=== PATIENT | female | born 2000 | race Caucasian/White ===

== ENCOUNTER 2020-07-03 15:26 | Emergency (ER) | payer OTHER, SELFPAY ==
--- NOTE | 2020-07-03 15:37 | ED.GENADULT ---
HPI - General Adult General Chief complaint: Skin/Abscess/Foreign Body Stated complaint: sore on private area Time Seen by Provider: 07/03/20 15:37 Source: patient Mode of arrival: ambulatory Limitations: no limitations History of Present Illness HPI narrative: 19-year-old female patient presents to the the medical center with complaints of blisters to the vaginal and anal area that she is noticed for the past 3 days. Patient states they are painful. Patient denies any discharge. Patient denies any fevers, abdominal pain, nausea, vomiting or diarrhea. Patient denies any vaginal discharge. Patient denies any pain with urination. Denies any pain with intercourse. Patient denies at this time. Patient states that she is sexually active but states that she does use condoms and is only with one person. Patient denies ever having an STD before in the past. Related Data Allergies Allergy/AdvReac Type Severity Reaction Status Date / Time No Known Allergies Allergy Verified 10/20/19 09:52 Review of Systems Review of Systems: Narrative: CONSTITUTIONAL: Denies fever, chills, or sweats. EYES: Denies visual changes, redness, or discharge. ENT: Denies rhinorrhea, congestion, sore throat, or otalgia. CARDIOVASCULAR: Denies chest pain, palpitations, or edema. RESPIRATORY: Denies cough or dyspnea. GASTROINTESTINAL: Denies abdominal pain, nausea, vomiting, or diarrhea. GENITOURINARY: Denies dysuria or hematuria. Positive painful blisters to vaginal buttocks area x3 days SKIN: Denies rash or itching. MUSCULOSKELETAL: Denies back pain, joint pain, or myalgia. NEUROLOGIC: Denies headache, numbness, or weakness. PSYCHIATRIC: Denies anxiety or depression. [facility] Surgical History Surgical History Hx of tympanostomy tubes Social History Social History Smoking status: Never smoker Alcohol intake: never Substance use: never Gender identity (if verbalized by the patient): Female Comments At the time of my signature I agree with nursing past medical history, surgical, social, and family history. There is no relevant family history pertinent to the presenting complaint. Exam Narrative: Exam Narrative: GENERAL: Well-appearing, well-nourished, and in no acute distress. HEAD: Normocephalic, atraumatic. EYES: PERRLA and EOMI. ENT: Nares clear, no rhinorrhea or epistaxis. Mucous membranes moist. NECK: Supple. No lymphadenopathy CHEST: Clear to auscultation. No respiratory distress. HEART: Regular rate and rhythm. No murmur heard. Normal peripheral pulses. ABDOMEN: Soft, nontender, nondistended, normal active bowel sounds. EXTREMITIES: Normal range of motion. No edema. SKIN: Warm, dry, no rash. Patient has blisters noted to vaginal area that are flat. To be and are starting to dry. The area does extend down to the left groin and the buttock area. There is no active discharge noted at this time. There is some surrounding erythema to the areas. NEURO: No focal deficits. Alert and oriented x3. Course Vital Signs Vital signs: Vital Signs Temperature 37.2 C 07/03/20 15:41 Pulse Rate 94 07/03/20 15:41 Respiratory Rate 16 07/03/20 15:41 Blood Pressure 143/86 H 07/03/20 15:41 Pulse Oximetry 99 07/03/20 15:41 Temperature 37.2 C 07/03/20 15:41 Pulse Rate 94 07/03/20 15:41 Respiratory Rate 16 07/03/20 15:41 Blood Pressure 143/86 H 07/03/20 15:41 Pulse Oximetry 99 07/03/20 15:41 Vital signs reviewed. The patient has been informed that they may have pre-hypertension or Hypertension based on a BP reading in the department. I recommend that the patient call the primary care provider listed on their discharge instructions or a physician of their choice this week to arrange follow up for further evaluation of possible pre-hypertension or Hypertension Medical Decision Making Differential Diagnosis Di
[2020-07-03 15:41] VITALS: BP 143/86; PULSE 94; RESP 16; TEMP 37.2; O2SAT 99
--- NOTE | 2020-07-03 15:48 | PC.NURSE ---
in br to obtain ua spec.
== END 2020-07-03 16:15 | disposition home or self-care (01) ==
PROVIDERS: Emergency Provider Nurse Practitioner Family; PCP Nurse Practitioner Psychiatric/Mental Health
DX: A60.1 Herpesviral infection of perianal skin and rectum (principal)
CPT/HCPCS: 81025; 99213; G0463

== ENCOUNTER 2020-07-15 08:03 | Emergency (ER) | payer OTHER, SELFPAY ==
[2020-07-15 08:17] VITALS: BP 138/71; PULSE 89; RESP 16; TEMP 36.9; O2SAT 100
--- NOTE | 2020-07-15 08:17 | ED.GENADULT ---
HPI - General Adult General Chief complaint: Upper Respiratory Infection Stated complaint: sore throat Time Seen by Provider: 07/15/20 08:23 Source: patient and RN notes reviewed Mode of arrival: ambulatory Limitations: no limitations History of Present Illness HPI narrative: This is a 19 years old female presents to the office for an evaluation of sore throat for two days. Associated with cough. No RX prior to arrival. 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 Denies COVID contact. Related Data Home Medications Medication Instructions Recorded Confirmed No Home Medications 07/15/20 07/15/20 Allergies Allergy/AdvReac Type Severity Reaction Status Date / Time No Known Allergies Allergy Verified 07/15/20 08:28 Review of Systems Review of Systems: Narrative: CONSTITUTIONAL: Denies fever, chills, sweats. ENT: Denies rhinorrhea, congestion, otalgia. Reports sore throat CARDIOVASCULAR: Denies chest pain, palpitation RESPIRATORY: Denies dyspnea, wheezing. Reports cough GASTROINTESTINAL: Denies abdominal pain, nausea, vomiting, diarrhea. GENITOURINARY: Denies urinary symptoms or discharge SKIN: Denies rash MUSCULOSKELETAL: Denies acute back pain NEUROLOGIC: Denies lightheaded All other systems reviewed are negative, except as documented in HPI. [facility] Surgical History Surgical History Hx of tympanostomy tubes Social History Social History Smoking status: Never smoker Alcohol intake: never Substance use: never Gender identity (if verbalized by the patient): Female Comments At time of signature, I agree with nursing past medical, surgical, social and family history. There is no relevant family history pertinent to the presenting complaint. Exam Narrative: Exam Narrative: GENERAL: This is a well-nourished, well-developed patient, in no apparent distress. EYES: Sclera clear/white. Vision is grossly intact. EARS: External ears normal, auditory canals clear and without drainage, TMs normal without perforation. Hearing grossly intact. NOSE: External nose normal with no obvious nasal discharge, nares without redness, no rhinorrhea. THROAT: Mucous membranes moist, posterior pharynx erythema with edematous. NECK: Neck supple, non-tender without lymphadenopathy, masses or thyromegaly. CARDIOVASCULAR: Regular rate and rhythm without murmurs, gallops, or rubs. RESPIRATORY: Clear to auscultation. Breath sounds equal bilaterally. No wheezes, rales, or rhonchi. GASTROINTESTINAL: Abdomen soft, non-tender, nondistended. Bowel sounds are active. No hepato-splenomegaly, or palpable masses. No guarding. SKIN: warm, intact with no suspicious lesions or rash, good texture and turgor. NEURO: awake, alert, and oriented to person, place and time. There were no obvious focal neurologic abnormalities. Steady gait Ángel Coma Scale Eye Opening: Spontaneous 4 [place] Coma Scale Motor: Obeys Commands 6 [place] Coma Scale Verbal: Oriented 5 Medical Decision Making MDM Narrative Medical decision making narrative: Discharge instructions reviewed with patient, as well as provided in writing per nursing staff. The instructions also include specific and strict return/GO TO THE ER as well as f/u information. All questions have been answered, and the patient deny any further questions with discharge and discharge plan. Differential Diagnosis Differential Diagnosis: Allergic Rhinitis, Upper respiratory cough syndrome, Pharyngitis, Sinusitis, Bronchitis, otitis media, viral URI, Asthma/reactive airway disease, COVID Medical Records Medical records reviewed: Yes I reviewed the patient's medical records. Medical records narrative: 07/03/2020 Lab Data Lab results reviewed: Yes I reviewed the patient's lab results. Critical Care Time Critical Care Time Critical Care Time: No Dischar
== END 2020-07-15 08:36 | disposition home or self-care (01) ==
PROVIDERS: Emergency Provider Nurse Practitioner; PCP Nurse Practitioner Psychiatric/Mental Health
DX: J02.9 Acute pharyngitis, unspecified (principal); K76.0 Fatty (change of) liver, not elsewhere classified
CPT/HCPCS: 87081; 87147; 87880; 99213; G0463

== ENCOUNTER 2021-10-18 17:52 | Emergency (ER) | payer OTHER, SELFPAY ==
--- NOTE | 2021-10-18 18:01 | ED.URI ---
HPI - URI/Sore Throat General Chief Complaint: Upper Respiratory Infection Stated Complaint: Sore throat Time Seen by Provider: 10/18/21 18:01 Source: patient, RN notes reviewed and old records reviewed Mode of arrival: ambulatory Limitations: no limitations History of Present Illness HPI Narrative: 20-year-old female presents to the [facility] with complaints of a sore throat, headache, body aches and generalized not feeling well. Denies having fevers. No abdominal pain or chest pain. Denies cough. Denies any significant medical or surgical history MD elicited complaint: sore throat Related Data Allergies Allergy/AdvReac Type Severity Reaction Status Date / Time No Known Allergies Allergy Verified 07/15/20 08:28 Review of Systems Review of Systems: All systems reviewed & are unremarkable except as noted in HPI and below Constitutional: Constitutional: Reports no additional constitutional complaints, Denies chills and Denies fever(s) Eyes: Eyes: Reports no additional eye complaints ENT: Reports as per HPI, Denies nasal congestion and Reports sore throat Cardiovascular: Cardiovascular: Reports no additional cardiovascular complaints and Denies chest pain Respiratory: Respiratory: Reports no additional respiratory complaints, Denies cough and Denies dyspnea Gastrointestinal: Gastrointestinal: Reports no additional gastrointestinal complaints, Denies abdominal pain, Denies nausea and Denies vomiting Musculoskeletal: Musculoskeletal: Reports as per HPI and Reports myalgias Integumentary/Breasts: Skin/Breast: Reports system reviewed and no additional complaints, except as docu Neurologic: Reports as per HPI and Reports headache(s) Psychiatric: Psychiatric: Reports no additional psychiatric complaints Allergic/Immunologic: Allergic/Immunologic: Reports no additional allergic/immunologic complaints PENDING SALE TO [facility] Past Medical History Medical History (Updated 10/18/21 @ 19:49 by Ashley Valerio) Patient denies medical problems Surgical History Surgical History (Updated 10/18/21 @ 19:49 by Ashley Valerio) Hx of tympanostomy tubes Social History Social History Smoking status: Never smoker Alcohol intake: never Substance use: never Gender identity (if verbalized by the patient): Female Comments At the time of my signature, I reviewed and agree with the nursing past medical, surgical, social, and family history. There is no relevant family history pertinent to the patient complaint. Exam Const: General: healthy appearing, no acute distress and alert Nutritional Appearance: well nourished and obese Orientation/consciousness: patient oriented x3 Limitations: no limitations HENMT: Head: normal to inspection Ears: external ears normal, TM's normal bilaterally and EAC's normal Eyes: Conjunctivae: conjunctivae normal Pupils: Equal, round and reactive pupils present Neck: Neck: normal visual inspection, no lymphadenopathy and no meningeal signs Chest: Chest palpation & inspection: normal inspection of the chest Resp: Effort & Inspection: normal respiratory effort and no use of accessory muscles Auscultation: clear to auscultation bilaterally, no crackles, no rales, no rhonchi and no wheezes Cardio: Rate: regular rate Rhythm: regular rhythm GI: GI Palp: Yes Soft to palpation and No Tenderness to palpation present (GI) : General: Yes no CVA tenderness Back/Spine/Pelvis: Back: no CVA tenderness Skin: General skin exam: normal color Rashes: no rashes Wounds: no wounds Neuro: General: patient oriented x3, moves all extremities, no meningeal signs and no focal motor deficits Speech: normal speech Gait exam (Neuro): Normal gait present Extrem: General: normal to inspection Psych: Appearance: grossly normal and well kempt Mental Status: mental status grossly normal Affect: normal affect Attitude: cooperative Thought content: Yes Normal thought cont
[2021-10-18 18:05] VITALS: BP 139/78; PULSE 118; RESP 20; TEMP 39.2; O2SAT 98
--- NOTE | 2021-10-18 18:22 | PC.NURSE ---
PCR thang collected, too late to call sherly will call in AM.
[2021-10-18 18:31] VITALS: TEMP 39.2
[2021-10-18] MEDS: ACETAMINOPHEN 500 MG TABLET 1000 MG PO (18:31)
[2021-10-18 18:48] LABS: SARS-CoV-2 RNA PCR Positive
== END 2021-10-18 18:59 | disposition home or self-care (01) ==
PROVIDERS: Emergency Provider Nurse Practitioner; PCP Registered Nurse
DX: U07.1 COVID-19 (principal); K76.0 Fatty (change of) liver, not elsewhere classified
CPT/HCPCS: 87081; 87147; 87804; 87880; 99213; A9270; C9803; G0463; U0003; U0005

== ENCOUNTER 2023-11-18 11:41 | Outpatient (CLI) | payer OTHER, SELFPAY ==
--- NOTE | ~2023-11-18 | XR_ITS ---
EXAMINATION: XR hysterosalpingogram DATE: 11/18/2023 12:32 INDICATION: Female infertility TECHNIQUE: Multiple fluoroscopic images were obtained during contrast infusion into the endometrial c anal of the uterus by the primary physician. Fluoroscopy exposure time was 0.4 minutes. A total of 5 fluoroscopic images were recorded. Total DAP was 4.641 Gycm^2 FINDINGS: The uterine cavity demonstrates normal morphology. The fallopian tubes are normal in caliber and pat ent bilaterally. There is normal spillage of contrast into the peritoneum on both sides. IMPRESSION: 1. Normal hysterosalpingogram. Reviewed, dictated and finalized at location A. LOPMENT EDITOR
--- NOTE | 2023-11-18 12:52 | W.PM.PROC2 ---
Procedure Note - Detailed Date of Procedure 11/18/23 Pre-op Diagnosis Female infertility Post-op Diagnosis Same Procedure Performed Hysterosalpingogram Surgeon Herrera Rose MD Anesthesia None Indications Infertility Findings Patent fallopian tubes bilaterally, normal appearing uterine cavity Description of Procedure R/b/a of procedure was discussed and consent was signed. The patient was placed on the fluoroscopy table and a speculum was placed in the vagina. The cervix was cleansed with betadine solution. The HSG catheter was inserted through the cervix and the balloon was inflated with 3cc of water. Under fluoroscopic guidance, contrast was injected slowly with bilateral spillage seen on fluoro. Total fluoro time 1 min. The balloon was deflated and the catheter was removed. The speculum was then removed. The patient tolerated the procedure well. Estimated Blood Loss 5 Complications No immediate complications Disposition Same day
== END 2023-11-18 11:42 | disposition home or self-care (01) ==
PROVIDERS: PCP Nurse Practitioner; Visit Provider Obstetrics & Gynecology
DX: N97.9 Female infertility, unspecified (principal)
CPT/HCPCS: 58340; 74740; Q9966